=== PATIENT | female | born 1995 | race Caucasian/White ===

== ENCOUNTER 2016-07-02 22:13 | Emergency (ER) | payer OTHER ==
--- NOTE | 2016-07-03 00:54 | ED CLINICAL REPORT ---
Clinical Report - Physicians/Mid Levels [facility] [address] [place] [address] 07/02/2016 22:16 Patient: ALESSANDRA LIN Time Seen: 22:39. Arrived- By private vehicle. HISTORY OF PRESENT ILLNESS Chief Complaint: ABDOMINAL PAIN. At its maximum, severity described as 10 / 10. When seen in the E.D., severity described as 8 / 10. Modifying factors- (Better with drinking water.). It is described as cramping and it is described as located in the lower abdomen. This started 2 - 3 weeks ago and is still present (worst ever today). Not worsening. It has been waxing/waning. The patient has had nausea. She has had vomiting (today 3 times, yesterday 1 time,). She has had diarrhea (today 1 time, yesterday 1 time in am). (2-3 weeks Water, food, antibiotics, camping - none questionable Pam - yesterday Does work at [employer]). Similar symptoms previously: Once. ( Alessandra tells me that she has had [address] scans, one for mastoiditis, one for chest trauma and one for abdominal pain.). Recent medical care: The patient was seen recently by a health care provider. ( Dr calvo. None). REVIEW OF SYSTEMS Last normal menstrual period- May 19 - last and light. 0. Para 0. Abortions 0. Sexual history - sexually active. No contraception. No difficulty with urination, pain with urination, urinary frequency, fever or sore throat. No blurred vision, chest pain, difficulty breathing, cough or joint pain. No fever. Last bowel movement: today. The patient has had a headache and headache and dizziness. PAST HISTORY PCP: None Ops: None Hosp: None Illness: None. SOCIAL HISTORY Current every day smoker. ADDITIONAL NOTES The nursing notes have been reviewed. PHYSICAL EXAM Vital Signs: 07/03/2016 00:45 BP: 109/64. HR: 70. RR: 18. O2 saturation: 99%. Pain level now: 04/27. 07/02/2016 22:24 BP: 109/56. HR: 77. RR: 18. O2 saturation: 100%. Temp: 98.2 F. Pain level now: 8/10. Appearance: Alert. No acute distress. Eyes: Eyes normal inspection. No conjunctival findings or scleral icterus. ENT: Pharynx normal. CVS: Normal heart rate and rhythm. Heart sounds normal. Respiratory: No respiratory distress. Breath sounds normal. Abdomen: Moderate tenderness in the lower abdomen. Bowel sounds normal. No rebound tenderness or guarding. : Normal external exam. Speculum exam normal. Bimanual exam normal. (given that this is her first pelvic exam.). Skin: Skin warm. Normal skin color. Extremities: Extremities exhibit normal ROM. No lower extremity edema. LABS, X-RAYS, AND EKG Laboratory Tests: UA-Culture if indicated: (SANAM: 07/02/2016 22:33) ( [facility] 07/02/2016 23:08) Final results Test Result Flag Units (Reference) URINE COLOR YELLOW URINE APPEARANCE CLEAR URINE GLUCOSE NEGATIVE (NEGATIVE) URINE BILIRUBIN NEGATIVE (NEGATIVE) URINE KETONE NEGATIVE (NEGATIVE) URINE SPECIFIC GRAVITY 1.015 (1.010-1.030) URINE PH 6.5 (5.0-8.0) URINE PROTEIN NEGATIVE (NEGATIVE) URINE UROBILINOGEN 0.2 EU/dL (0.2-1.0) URINE NITRITE NEGATIVE (NEGATIVE) URINE BLOOD NEGATIVE (NEGATIVE) URINE LEUK ESTERASE NEGATIVE (NEGATIVE) URINE RBC 0-1 rbc/hpf (0-1) URINE WBC 0-1 wbc/hpf (0-1) URINE EPITHELIAL CELLS 1-3 EPI/hpf (0-5) URINE BACTERIA TRACE (<1+) (NONE SEEN) URINE COMMENT CULT NOT INDICATED URINE CULTURES ARE SET-UP BASED ON THE FOLLOWING CRITERIA:POSITIVE NITRITEPOSITIVE LEUKOCYTE ESTERASEGREATER THAN 10 WHITE BLOOD CELLSMODERATE (2+) OR GREATER BACTERIA Urine: (SANAM: 07/02/2016 22:33) ( [facility] 07/02/2016 22:57) Final results Test Result Flag Units (Reference) URINE NEGATIVE CBC w Diff: (SANAM: 07/02/2016 23:07) ( [facility] 07/02/2016 23:26) Final results Test Result Flag Units (Reference) WHITE BLOOD COUNT 6.6 K/uL (4.5-11.5) RED BLOOD COUNT 4.18 M/uL (4.00-5.20) HEMOGLOBIN 12.1 gm/dL (12.0-16.0) HEMATOCRIT 36.3 % (36.0-46.0) MEAN CELL VOLUME 87 fL (80-100) MEAN CORPUSCULAR HGB 29 pg (26-34) MEAN CORPUSCULAR HGB CONC 33 g/dL (31-37) RED CELL DISTRIBUTION WIDTH 14.6 % (11.6-14.8) PLATELET COUNT 221 K/uL (150-400) LYMPH % 45.1 H % (25-40) MONO % 2.9 L % (3-14) GRANULOCYTE % 52.0 L (53-90) CMP: (SANAM: 07/02/2016 23:07) ( [facility] 07/02/2016 23:40) Final results Test Result Flag Units (Reference) GLUCOSE 80 mg/dL (70-110) BUN 22 H mg/dL (7-18) CREATININE 0.7 mg/dL (0.6-1.3) Estimated GFR >60 mL/min Estimated GFR- >60 mL/min Note: Persistent reduction over 3 months in eGFR<60 mL/min/1.73 m2 defines CKD. Patients with eGFR values>=60 mL/min/1.73 m2 may also have CKD if evidence ofpersistent proteinuria. Additional information may be foundat www.kidney.org. SODIUM 142 mmol/L (136-145) POTASSIUM 4.3 mmol/L (3.5-5.1) CHLORIDE 107 mmol/L (98-107) CARBON DIOXIDE 28 mmol/L (21-32) CALCIUM 8.5 mg/dL (8.5-10.1) TOTAL PROTEIN 7.0 g/dL (6.4-8.2) ALBUMIN 3.5 g/dL (3.3-5.0) BILIRUBIN, TOTAL 0.3 mg/dL (0.0-1.0) ALKALINE PHOSPHATASE 43 L U/L (46-116) AST (SGOT) 22 U/L (15-37) ALT (SGPT) 22 U/L (12-78) LIPASE 310 U/L (73-393) . PROGRESS AND PROCEDURES Course of Care: 00:27 07/03/16. Repeat Exam - mild to moderate tenderness without peritoneal signs. This has been going on for several days. There is no ectopic, doubt appy although cannot completely exclude. An enteric pathogen is most likely. Will get stool study with tomorrow AM BM and will recheck in ED if not better in 12 to 24 hours. Disposition: Discharged. Condition: stable. CLINICAL IMPRESSION Abdominal pain of unknown cause. Clinical picture does not suggest cholecystitis, diverticulitis, peritonitis, renal colic or ureterolithiasis. Clinical picture does not suggest urinary tract infection, ovarian cyst, pelvic inflammatory disease, ectopic or pneumonia. INSTRUCTIONS (ESTABLISH PRIMARY CARE RECHECK IN 12-24 HOURS IF NOT BETTER. BRING A STOOL SAMPLE TO THE CHECK IN AREA FOR THE LAB.). Prescription Medications: Zofran 4 mg: Take 1 orally every six hours as needed for nausea/vomiting. Dispense ten (10). No refills. Substitution is permissible. STOOL TO LAB: RESULTS TO ED AND DR DAUGHERTY. STOOL FOR ENTERIC PATHOGENS AND OVA AND PARASITES. STOOL FOR C DIFF TOXIN. Understanding of the discharge instructions verbalized by patient. Follow-up with: Juliana Daugherty MD, Family Practice, , [facility], [address] [place] [address] Follow up. Call for an appointment. (Electronically signed by Ward Garner MD 07/03/2016 5:00)
--- NOTE | 2016-07-03 00:54 | ED ORDER SUMMARY ---
..... Patient: KIMBERLY LIN OrderSheet [facility] VisitID: [id number] [place] [address] 20y, F Registration Date/Time: 07/02/2016 ORDER SHEET Weight: 56.6 kg (stated) Allergies: Codeine GENERAL ORDERS: UA-Culture if indicated Urgent (22:34 07/02/2016 CBradburn R.N. per protocol) (22:34 CBradburn R.N.) Urine Urgent (22:34 07/02/2016 CBradburn R.N. per protocol) (22:34 CBradburn R.N.) CBC w Diff Urgent (22:47 07/02/2016 Kareem BARBER) (Ack 23:13 Tayoekimashauna) (23:14 CBradangeles R.N.) CMP Urgent (22:47 07/02/2016 Kareem BARBER) (Ack 23:13 Ana) (23:14 MARSHALLradangeles R.N.) Lipase Urgent (22:47 07/02/2016 Kareem BARBER) (Ack 23:13 Tayoekimana) (23:14 MARSHALLradangeles R.N.) Pelvic Exam Setup (22:49 07/02/2016 Kareem BARBER) (23:14 MARSHALLradangeles R.N.) GC/Chlamydia (Cervix) (swab) Urgent (00:28 07/03/2016 Kareem BARBER) (Ack 0:28 Ana) (0:40 MARSHALLradangeles R.N.) MEDICATION ORDERS: Zofran ODT PO 4 mg (NOW) (00:29 07/03/2016 Kareem BARBER) (Ack 0:40 MARSHALLradangeles R.N.) (0:50 MARSHALLradangeles R.N.) IV FLUIDS: ORDER SHEET NOTES: [Electronically signed by April Balderas R.N. (00:54 07/03/2016)] [Electronically signed by Ward Garner MD (05:00 07/03/2016)] [Electronically locked/signed by April Balderas R.N. (00:54 07/03/2016)]
--- NOTE | 2016-07-03 00:54 | ED ORDER SUMMARY ---
..... Patient: KIMBERLY LIN OrderSheet [facility] VisitID: [id number] [place] [address] 20y, F Registration Date/Time: 07/02/2016 ORDER SHEET Weight: 56.6 kg (stated) Allergies: Codeine GENERAL ORDERS: UA-Culture if indicated Urgent (22:34 07/02/2016 CBradburn R.N. per protocol) (22:34 CBradburn R.N.) Urine Urgent (22:34 07/02/2016 CBradburn R.N. per protocol) (22:34 CBradburn R.N.) CBC w Diff Urgent (22:47 07/02/2016 Kareem BARBER) (Ack 23:13 Tayoekimashauna) (23:14 CBradangeles R.N.) CMP Urgent (22:47 07/02/2016 Kareem BARBER) (Ack 23:13 Ana) (23:14 MARSHALLradangeles R.N.) Lipase Urgent (22:47 07/02/2016 Kareem BARBER) (Ack 23:13 Tayoekimana) (23:14 MARSHALLradangeles R.N.) Pelvic Exam Setup (22:49 07/02/2016 Kareem BARBER) (23:14 MARSHALLradangeles R.N.) GC/Chlamydia (Cervix) (swab) Urgent (00:28 07/03/2016 Kareem BARBER) (Ack 0:28 Ana) (0:40 MARSHALLradangeles R.N.) MEDICATION ORDERS: Zofran ODT PO 4 mg (NOW) (00:29 07/03/2016 Kareem BARBER) (Ack 0:40 MARSHALLradangeles R.N.) (0:50 MARSHALLradangeles R.N.) IV FLUIDS: ORDER SHEET NOTES: [Electronically signed by April Balderas R.N. (00:54 07/03/2016)] [Electronically signed by Ward Garner MD (05:00 07/03/2016)] [Electronically locked/signed by April Balderas R.N. (00:54 07/03/2016)]
--- NOTE | 2016-07-03 00:54 | ED CLINICAL REPORT ---
Clinical Report - Physicians/Mid Levels [facility] [address] [place] [address] 07/02/2016 22:16 Patient: ALESSANDRA LIN Time Seen: 22:39. Arrived- By private vehicle. HISTORY OF PRESENT ILLNESS Chief Complaint: ABDOMINAL PAIN. At its maximum, severity described as 10 / 10. When seen in the E.D., severity described as 8 / 10. Modifying factors- (Better with drinking water.). It is described as cramping and it is described as located in the lower abdomen. This started 2 - 3 weeks ago and is still present (worst ever today). Not worsening. It has been waxing/waning. The patient has had nausea. She has had vomiting (today 3 times, yesterday 1 time,). She has had diarrhea (today 1 time, yesterday 1 time in am). (2-3 weeks Water, food, antibiotics, camping - none questionable Pam - yesterday Does work at [employer]). Similar symptoms previously: Once. ( Alessandra tells me that she has had [address] scans, one for mastoiditis, one for chest trauma and one for abdominal pain.). Recent medical care: The patient was seen recently by a health care provider. ( Dr calvo. None). REVIEW OF SYSTEMS Last normal menstrual period- May 19 - last and light. 0. Para 0. Abortions 0. Sexual history - sexually active. No contraception. No difficulty with urination, pain with urination, urinary frequency, fever or sore throat. No blurred vision, chest pain, difficulty breathing, cough or joint pain. No fever. Last bowel movement: today. The patient has had a headache and headache and dizziness. PAST HISTORY PCP: None Ops: None Hosp: None Illness: None. SOCIAL HISTORY Current every day smoker. ADDITIONAL NOTES The nursing notes have been reviewed. PHYSICAL EXAM Vital Signs: 07/03/2016 00:45 BP: 109/64. HR: 70. RR: 18. O2 saturation: 99%. Pain level now: 04/27. 07/02/2016 22:24 BP: 109/56. HR: 77. RR: 18. O2 saturation: 100%. Temp: 98.2 F. Pain level now: 8/10. Appearance: Alert. No acute distress. Eyes: Eyes normal inspection. No conjunctival findings or scleral icterus. ENT: Pharynx normal. CVS: Normal heart rate and rhythm. Heart sounds normal. Respiratory: No respiratory distress. Breath sounds normal. Abdomen: Moderate tenderness in the lower abdomen. Bowel sounds normal. No rebound tenderness or guarding. : Normal external exam. Speculum exam normal. Bimanual exam normal. (given that this is her first pelvic exam.). Skin: Skin warm. Normal skin color. Extremities: Extremities exhibit normal ROM. No lower extremity edema. LABS, X-RAYS, AND EKG Laboratory Tests: UA-Culture if indicated: (SANAM: 07/02/2016 22:33) ( [facility] 07/02/2016 23:08) Final results Test Result Flag Units (Reference) URINE COLOR YELLOW URINE APPEARANCE CLEAR URINE GLUCOSE NEGATIVE (NEGATIVE) URINE BILIRUBIN NEGATIVE (NEGATIVE) URINE KETONE NEGATIVE (NEGATIVE) URINE SPECIFIC GRAVITY 1.015 (1.010-1.030) URINE PH 6.5 (5.0-8.0) URINE PROTEIN NEGATIVE (NEGATIVE) URINE UROBILINOGEN 0.2 EU/dL (0.2-1.0) URINE NITRITE NEGATIVE (NEGATIVE) URINE BLOOD NEGATIVE (NEGATIVE) URINE LEUK ESTERASE NEGATIVE (NEGATIVE) URINE RBC 0-1 rbc/hpf (0-1) URINE WBC 0-1 wbc/hpf (0-1) URINE EPITHELIAL CELLS 1-3 EPI/hpf (0-5) URINE BACTERIA TRACE (<1+) (NONE SEEN) URINE COMMENT CULT NOT INDICATED URINE CULTURES ARE SET-UP BASED ON THE FOLLOWING CRITERIA:POSITIVE NITRITEPOSITIVE LEUKOCYTE ESTERASEGREATER THAN 10 WHITE BLOOD CELLSMODERATE (2+) OR GREATER BACTERIA Urine: (SANAM: 07/02/2016 22:33) ( [facility] 07/02/2016 22:57) Final results Test Result Flag Units (Reference) URINE NEGATIVE CBC w Diff: (SANAM: 07/02/2016 23:07) ( [facility] 07/02/2016 23:26) Final results Test Result Flag Units (Reference) WHITE BLOOD COUNT 6.6 K/uL (4.5-11.5) RED BLOOD COUNT 4.18 M/uL (4.00-5.20) HEMOGLOBIN 12.1 gm/dL (12.0-16.0) HEMATOCRIT 36.3 % (36.0-46.0) MEAN CELL VOLUME 87 fL (80-100) MEAN CORPUSCULAR HGB 29 pg (26-34) MEAN CORPUSCULAR HGB CONC 33 g/dL (31-37) RED CELL DISTRIBUTION WIDTH 14.6 % (11.6-14.8) PLATELET COUNT 221 K/uL (150-400) LYMPH % 45.1 H % (25-40) MONO % 2.9 L % (3-14) GRANULOCYTE % 52.0 L (53-90) CMP: (SANAM: 07/02/2016 23:07) ( [facility] 07/02/2016 23:40) Final results Test Result Flag Units (Reference) GLUCOSE 80 mg/dL (70-110) BUN 22 H mg/dL (7-18) CREATININE 0.7 mg/dL (0.6-1.3) Estimated GFR >60 mL/min Estimated GFR- >60 mL/min Note: Persistent reduction over 3 months in eGFR<60 mL/min/1.73 m2 defines CKD. Patients with eGFR values>=60 mL/min/1.73 m2 may also have CKD if evidence ofpersistent proteinuria. Additional information may be foundat www.kidney.org. SODIUM 142 mmol/L (136-145) POTASSIUM 4.3 mmol/L (3.5-5.1) CHLORIDE 107 mmol/L (98-107) CARBON DIOXIDE 28 mmol/L (21-32) CALCIUM 8.5 mg/dL (8.5-10.1) TOTAL PROTEIN 7.0 g/dL (6.4-8.2) ALBUMIN 3.5 g/dL (3.3-5.0) BILIRUBIN, TOTAL 0.3 mg/dL (0.0-1.0) ALKALINE PHOSPHATASE 43 L U/L (46-116) AST (SGOT) 22 U/L (15-37) ALT (SGPT) 22 U/L (12-78) LIPASE 310 U/L (73-393) . PROGRESS AND PROCEDURES Course of Care: 00:27 07/03/16. Repeat Exam - mild to moderate tenderness without peritoneal signs. This has been going on for several days. There is no ectopic, doubt appy although cannot completely exclude. An enteric pathogen is most likely. Will get stool study with tomorrow AM BM and will recheck in ED if not better in 12 to 24 hours. Disposition: Discharged. Condition: stable. CLINICAL IMPRESSION Abdominal pain of unknown cause. Clinical picture does not suggest cholecystitis, diverticulitis, peritonitis, renal colic or ureterolithiasis. Clinical picture does not suggest urinary tract infection, ovarian cyst, pelvic inflammatory disease, ectopic or pneumonia. INSTRUCTIONS (ESTABLISH PRIMARY CARE RECHECK IN 12-24 HOURS IF NOT BETTER. BRING A STOOL SAMPLE TO THE CHECK IN AREA FOR THE LAB.). Prescription Medications: Zofran 4 mg: Take 1 orally every six hours as needed for nausea/vomiting. Dispense ten (10). No refills. Substitution is permissible. STOOL TO LAB: RESULTS TO ED AND DR DAUGHERTY. STOOL FOR ENTERIC PATHOGENS AND OVA AND PARASITES. STOOL FOR C DIFF TOXIN. Understanding of the discharge instructions verbalized by patient. Follow-up with: Juliana Daugherty MD, Family Practice, , [facility], [address] [place] [address] Follow up. Call for an appointment. (Electronically signed by Ward Garner MD 07/03/2016 5:00)
--- NOTE | 2016-07-03 00:54 | ED NURSING NOTES ---
Clinical Report - Nurses [facility] [address] [place] [address] 07/02/2016 22:16 Patient: KIMBERLY LIN TRIAGE Triage time 22:24. Acuity: LEVEL 3. Chief Complaint: ABDOMINAL PAIN, NAUSEA, VOMITING and DIARRHEA. --22:32 April Balderas R.N. 22:24 07/02/16. BP: 109/56 taken on the left arm, while lying. HR: 77 (regular and normal rate). RR: 18. O2 saturation: 100% on room air. Temp: 98.2 F (oral). Pain level now: 09/27. --22:32 April Balderas R.N. Weight: 56.6 kg stated. Height/Length: 61 inches Per Patient. BMI: 23.6. --22:29 April Balderas R.N. Medications None. --22:30 April Balderas R.N. Allergies Codeine. Definite Severe(dizziness, vomiting) --22:30 April Balderas R.N. History Arrived by private vehicle. Historian: patient. Accompanied by friend. Primary physician (none). Onset was gradual. Symptoms still present (3 weeks ago). ( started 3 weeks ago, getting worse got lightheaded today, N/V/D only in the mornings unsure if ). She has had nausea and diarrhea. She has had moderate vomiting (3 times today). PAST MEDICAL HX: Immunizations: up-to-date. Last normal menstrual period- May 19 2016. 0. Sexual history - sexually active. No contraception. SOCIAL HX: Light tobacco smoker (cigarette)- less than 1/2 a pack per day. Occasional alcohol use; consumes beer. No drug use. No recent travel. No infectious disease exposure. No known contact with a sick individual. ABUSE ASSESSMENT: No report of abuse. SELF HARM ASSESSMENT: A self harm assessment was performed. The patient answered "no" to the question "Have you recently felt down, depressed, or hopeless?", "Have you noticed less interest or pleasure in doing things?", "Do you have thoughts of harming or killing yourself?", "Are you here because you tried to hurt yourself?", "Have you ever tried to hurt yourself before today?", "Have you recently had thoughts about harming or killing others?" and "Do you have any dangerous items in your possession?". FALL RISK ASSESSMENT: Fall risk assessment completed. No fall risk identified. NUTRITIONAL RISK ASSESSMENT: The nutritional risk assessment revealed no deficiencies. FUNCTIONAL ASSESSMENT: Functional assessment: no impairments noted. LEARNING NEEDS ASSESSMENT: The learning needs assessment revealed no barriers. SKIN INTEGRITY ASSESSMENT: Skin integrity risk assessment completed. No skin integrity risk identified. --:32 April Balderas R.N. PROBLEMS: Abdominal Pain. Immunizations. LNMP - Last Normal Menstrual Period. --:31 April Balderas R.N. Gastroenteritis [RuleOut]. --22:31 April Balderas R.N. ADDITIONAL SURGERIES: [place] teeth extraction. --22:31 April Balderas R.N. Interventions ID band on patient. --22:32 April Balderas R.N. PHYSICAL ASSESSMENT Ambulatory to room. GENERAL / NEURO / PSYCH: Alert. Oriented X 4. Appears in no acute distress. HEENT: Mucous membranes are pink. RESPIRATORY: Respirations not labored. Breath sounds within normal limits. CVS: Normal sinus rhythm noted. Capillary refill less than 2 seconds. GI / : The patient has diarrhea (this AM). This has occurred only once. Abdomen soft and nontender. Bowel sounds within normal limits. A scant amount of white vaginal discharge present. SKIN: Skin is warm and dry. --:33 April Balderas R.N. NURSING PROGRESS NOTES Patient gowned. Two patient identifiers checked. Call light placed in reach. Side rails up x 1. Bed placed in lowest position. Brakes of bed on. --:33 April Balderas R.N. Patient ready for evaluation- chart flagged. --22:33 April Balderas R.N. Patient ID band checked for patient name and birthdate: patient confirmed. Instructions provided to collect clean catch urine and patient verbalized understanding. Clean catch urine collected with return of yellow-colored clear urine; sample sent to lab for urinalysis and HCG. Specimen labeled in the presence of the patient. --22:34 April Balderas R.N. 23:05 07/02/2016 Site #1 started via IV in the left antecubital space with an 20g angiocath, with aseptic technique and good blood return; one attempt. Blood drawn: rainbow set. Labeled in the presence of the patient and sent to the lab. Saline lock flushed with 10 mL saline. --23:16 April Balderas R.N. Patient ID band checked for patient name and birthdate: patient confirmed. Blood samples drawn from the right antecubital space peripheral IV site by nurse per protocol ; labeled in presence of the patient and sent to lab: rainbow set. Line flushed with 10 mL normal saline post blood draw. --23:16 April Balderas R.N. The patient reports no complaints and she is calm. ( pt sitting visiting with friend, no distress noted, VSS, will continue to monitor). --23:17 April Balderas R.N. PELVIC EXAM: Pelvic exam performed by ED physician (Pascual). Assisted by one nurse (Anastasia). Preparation: pelvic tray. Procedure: speculum and bimanual exam. Scant amount of white vaginal discharge noted. Specimens collected and sent to lab: GC and chlamydia. Status post-procedure: she was stable and no complications were noted. Total time of assist / procedure: (10 min). --00:28 April Balderas R.N. DISPOSITION / DISCHARGE 00:40 07/03/2016 Zofran ODT (Ondansetron) PO Oral Disintegrating Tablets 4 mg given. Allergies verified and confirmed 5 rights. --00:50 April Balderas R.N. 00:45 07/03/2016 Site #1 removed upon discharge. Catheter intact. Manual pressure and bandage applied. --00:50 April Balderas R.N. Condition at departure: improved and stable. No learning barriers present. Discharge instructions provided and reviewed with the patient. Reviewed medication(s) side effects, precautions, dosing and course information. Prescription(s) given to the patient. Reviewed referral to family practice for followup. Patient verbalized understanding. Written instructions provided in Greenlandic (pt given instruction and prescription for stool sample back to hospital lab. pt given collection hat, specimen bag and acknowleged understanding.). The patient was discharged home and accompanied by friend. She left the Emergency Department ambulatory and via private vehicle. Driving (friend). --00:54 April Balderas R.N. 00:45 07/03/16. BP: 109/64 taken on the left arm, while sitting. HR: 70 (regular and normal rate). RR: 18 (regular and unlabored). O2 saturation: 99% on room air. Temp: deferred. Pain level now: 04/27. --00:54 April Balderas R.N. Departure time: 45. --00:54 April Balderas R.N. Locked/Released at 07/03/2016 0:54 by April Balderas R.N.
--- NOTE | 2016-07-03 05:00 | ED MAR SUMMARY ---
..... Medication Administration Record [facility] [address] [place] [address] Patient: KIMBERLY LIN Visit ID: [id number] 20y, F Weight: 56.6 kg Height/Length: 61 in BMI: 23.6 ALLERGIES: Codeine Given 00:40 07/03/2016 April Balderas R.N. Medication Administered: ZOFRAN ODT [PO] (ONDANSETRON), Dose: 4 mg Oral Disintegrating Tablets PO. Medication Ordered: Zofran ODT PO 4 mg (NOW).
--- NOTE | 2016-07-03 05:00 | ED MAR SUMMARY ---
..... Medication Administration Record [facility] [address] [place] [address] Patient: KIMBERLY LIN Visit ID: [id number] 20y, F Weight: 56.6 kg Height/Length: 61 in BMI: 23.6 ALLERGIES: Codeine Given 00:40 07/03/2016 April Balderas R.N. Medication Administered: ZOFRAN ODT [PO] (ONDANSETRON), Dose: 4 mg Oral Disintegrating Tablets PO. Medication Ordered: Zofran ODT PO 4 mg (NOW).
--- NOTE | 2016-07-03 05:00 | ED MED RECONCILIATION SUMMARY ---
Patient: KIMBERLY LIN Medication Reconciliation Report [facility] VisitID: [id number] [address] [place] [address] 20y, F Registration Date/Time: 07/02/2016 Weight: 56.6 kg Height/Length: 61 in. BMI: 23.6 ALLERGIES: Codeine The patient's Home Medications are listed below: NONE. The source(s) of the original Home Medication information: Not obtained. The following Medications were given to the patient in the Emergency Department: Zofran ODT [PO] PO 4 mg, administered: 07/03/2016 12:40:00 AM The following Medications were prescribed to the patient: STOOL TO LAB: RESULTS TO ED AND DR GUERIN. STOOL FOR ENTERIC PATHOGENS AND OVA AND PARASITES. STOOL FOR C DIFF TOXIN. -- Ward Garner MD Zofran 4 mg: Take 1 orally every six hours as needed for nausea/vomiting. Dispense ten (10). No refills. Substitution is permissible. -- Ward Garner MD
--- NOTE | 2016-07-03 05:00 | ED MED RECONCILIATION SUMMARY ---
Patient: KIMBERLY LIN Medication Reconciliation Report [facility] VisitID: [id number] [address] [place] [address] 20y, F Registration Date/Time: 07/02/2016 Weight: 56.6 kg Height/Length: 61 in. BMI: 23.6 ALLERGIES: Codeine The patient's Home Medications are listed below: NONE. The source(s) of the original Home Medication information: Not obtained. The following Medications were given to the patient in the Emergency Department: Zofran ODT [PO] PO 4 mg, administered: 07/03/2016 12:40:00 AM The following Medications were prescribed to the patient: STOOL TO LAB: RESULTS TO ED AND DR GUERIN. STOOL FOR ENTERIC PATHOGENS AND OVA AND PARASITES. STOOL FOR C DIFF TOXIN. -- Ward Garner MD Zofran 4 mg: Take 1 orally every six hours as needed for nausea/vomiting. Dispense ten (10). No refills. Substitution is permissible. -- Ward Garner MD
--- NOTE | 2016-07-03 05:00 | ED DISCHARGE INSTRUCTIONS ---
Patient: KIMBERLY LIN General Instructions [facility] VisitID: [id number] [place] [address] 20y, F Registration Date/Time: 07/02/2016 Abdominal pain of unknown cause. INSTRUCTIONS (ESTABLISH PRIMARY CARE RECHECK IN 12-24 HOURS IF NOT BETTER. BRING A STOOL SAMPLE TO THE CHECK IN AREA FOR THE LAB.). Prescription Medications: Zofran 4 mg: Take 1 orally every six hours as needed for nausea/vomiting. Dispense ten (10). No refills. Substitution is permissible. STOOL TO LAB: RESULTS TO ED AND DR DAUGHERTY. STOOL FOR ENTERIC PATHOGENS AND OVA AND PARASITES. STOOL FOR C DIFF TOXIN. Understanding of the discharge instructions verbalized by patient. Follow-up with: Juliana Daugherty MD, [facility], , [facility], [address] [place] [address] Follow up. Call for an appointment. ADDITIONAL INFORMATION Abdominal Pain, Unknown Cause (Female) The exact cause of your abdominal (stomach) pain is not certain. This does not mean that this is something to worry about, or the right tests were not done. Everyone likes to know the exact cause of the problem, but sometimes with abdominal pain, there is no clear-cut cause, and this could be a good thing. The good news is that your symptoms can be treated, and you will feel better. Your condition does not seem serious now; however, sometimes the signs of a serious problem may take more time to appear. For this reason,it is important for you to watch for any new symptoms, problems,or worsening of your condition. Over the next few days, the abdominal pain may come and go, or be continuous. Other common symptoms can include nausea and vomiting. Sometimes it can be difficult to tell if you feel nauseous, you may just feel bad and not associate that feeling with nausea. Constipation, diarrhea, and a fever may go along with the pain. The pain may continue even if treated correctly over the following days. Depending on how things go, sometimes the cause can become clear and may require further or different treatment. Additional evaluations, medications, or tests may be needed. Home care Your health care provider may prescribe medications for pain, symptoms, or an infection. Follow the health care provider's instructions for taking these medications. General care Rest until your next exam. No strenuous activities. Try to find positions that ease discomfort. A small pillow placed on the abdomen may help relieve pain. Something warm on your abdomen (such as a heating pad) may help, but be careful not to burn yourself. Diet Do not force yourself to eat, especially if having cramps, vomiting, or diarrhea. Water is important so you do not get dehydrated. Soup may also be good. Sports drinks may also help, especially if they are not too acidic. Make sure you don't drink sugary drinks as this can make things worse. Take liquids in small amounts. Do not guzzle them. Caffeine sometimes makes the pain and cramping worse. Avoid dairy products if you have vomiting or diarrhea. Don't eat large amounts at a time. Wait a few minutes between bites. Eat a diet low in fiber (called a low-residue diet). Foods allowed include refined breads, white rice, fruit and vegetable juices without pulp, tender meats. These foods will pass more easily through the intestine. Avoid whole-grain foods, whole fruits and vegetables, meats, seeds and nuts, fried or fatty foods, dairy, alcohol and spicy foods until your symptoms go away. Follow-up care Follow up with your health care provider as instructed, or if your pain does not begin to improve in the next 24 hours. When to seek medical care Seek prompt medical care if any of the following occur: Pain gets worse or moves to the right lower abdomen New or worsening vomiting or diarrhea Swelling of the abdomen Unable to pass stool for more than three days Fever of 100.4F (38C) or higher, or as directed by your healthcare provider. Blood in vomit or bowel movements (dark red or black color) Jaundice (yellow color of eyes and skin) Weakness, dizziness Chest, arm, back, neck or jaw pain Unexpected vaginal bleeding or missed period Call 911 Call emergency services if any of the following occur: Trouble breathing Confusion Fainting or loss of consciousness Rapid heart rate Seizure You have been given the following additional information: Abdominal Pain, Unknown Cause, (Female) (Electronically signed by Ward Garner MD 07/03/2016 5:00)
== END 2016-07-03 00:46 | disposition home or self-care (01) ==
LOC: ED SRH 22:13
DX: R10.30 Lower abdominal pain, unspecified (principal); F17.200 Nicotine dependence, unspecified, uncomplicated
CPT/HCPCS: 90004; 90100; 91227; 91228; 92235; 93070; 95059